=== PATIENT | male | born 2000 | race Caucasian/White ===

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

== ENCOUNTER 2024-07-08 06:06 | Emergency (ER) | payer OTHER, SELFPAY ==
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
[2024-07-08 06:06] VITALS: BP 152/78; PULSE 108; RESP 15; O2SAT 98
[2024-07-08] MEDS: IBUPROFEN 600 MG TABLET PO (07:28)
[2024-07-08 07:29] VITALS: BP 139/79; PULSE 101; RESP 18; TEMP 36.3; O2SAT 99
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
== END 2024-07-08 08:45 | disposition home or self-care (01) ==
PROVIDERS: Emergency Provider Emergency Medicine
DX: S63.617A Unspecified sprain of left little finger, initial encounter (principal); S63.92XA Sprain of unspecified part of left wrist and hand, initial encounter; V09.29XA Pedestrian injured in traffic accident involving other motor vehicles, initial encounter
CPT/HCPCS: 29125; 73100; 73130; 99283; A9270